=== PATIENT | male | born 1950 | race Caucasian/White ===

== ENCOUNTER → 2018-04-29 | Outpatient (CLI) | payer OTHER, MEDICARE | LOC: FIMAGING 13:41 | PROVIDERS: ATTEND Family Medicine | DX: M25.511 Pain in right shoulder (principal) ==

== ENCOUNTER 2018-11-26 11:11 | Day surgery (SDC) | payer OTHER, MEDICARE ==
--- NOTE | 2018-11-26 09:04 | PDGENHP ---
History and Physical - Chief Complaint ventral hernia - History of Present Illness Otherwise healthy 68yo M presents with ventral hernia. Breifly, patient has noticed mele above his umbilicus for some time. It has recently gotten painful. Reducible per his report History Information - Allergies/Home Medication List Allergies/Adverse Reactions: codeine Allergy (Verified 11/12/18 12:11) HYPER ACTIVITY Home Medications: Amlodipine Besylate DAILY 11/12/18 [Last Taken Unknown] Aspirin 81mg (*) DAILY 11/12/18 [Last Taken Unknown] Herbals/Supplements -Info Only DAILY 11/12/18 [Last Taken Unknown] Losartan Potassium DAILY 11/12/18 [Last Taken Unknown] I have personally reviewed and updated: family history, medical history, social history, surgical history - Past Medical History no pertinent PMH - Surgical History Reports: no pertinent surgical hx - Family History Positive for: non-pertinent - Social History Smoking Status: Current some day smoker Additional social history: retired Review of Systems Review of Systems: Physical Exam Physical Exam:
[2018-11-26] MEDS ORDERED: ceFAZolin 2 GM/DEXTROSE 100 ML IV ONE (11:20)
[2018-11-26] MEDS ORDERED: LR 1,000 ML IV ONE (11:23)
--- NOTE | 2018-11-26 12:25 | PDANEPAE ---
ANE History of Present Illness ventral hernia ANE Past Medical History - Cardiovascular History Hx Hypertension: Yes Hx Arrhythmias: No Hx Chest Pain: No Hx Coronary Artery / Peripheral Vascular Disease: No Hx CHF / Valvular Disease: No Hx Palpitations: No - Pulmonary History Hx COPD: No Hx Asthma/Reactive Airway Disease: No Hx Recent Upper Respiratory Infection: No Hx Oxygen in Use at Home: No Hx Sleep Apnea: No Sleep Apnea Screening Result - Last Documented: Positive Pulmonary History Comment: OCCASIONAL CIGAR - Neurologic History Hx Cerebrovascular Accident: No Hx Seizures: No Hx Dementia: No - Endocrine History Hx Diabetes: No - Renal History Hx Renal Disorders: No - Liver History Hx Hepatic Disorders: No - Neurological & Psychiatric Hx Hx Neurological and Psychiatric Disorders: No - Cancer History Hx Cancer: No - Congenital Disorder History Hx Congenital Disorders: No - GI History Hx Gastrointestinal Disorders: No - Other Health History Other Health History: ABDOMINAL BULDGE. RT SHLDR IMPINGEMENT/CORTISONE SHOT 6 MONTHS SLIGHT ROM ISSUES. DENTAL IMPLANTS - Chronic Pain History Chronic Pain: No - Surgical History Prior Surgeries: ORAL SURGERY ANE Review of Systems Review of systems is: negative Review of Systems: - Exercise capacity METS (RN): 5 METS ANE Patient History - Allergies Allergies/Adverse Reactions: codeine Allergy (Verified 11/12/18 12:11) HYPER ACTIVITY - Home Medications Home medications: home medication list seen and reviewed Home Medications: Amlodipine Besylate DAILY 11/12/18 [Last Taken 11/26/18] Aspirin 81mg (*) DAILY 11/12/18 [Last Taken 11/25/18] Herbals/Supplements -Info Only DAILY 11/12/18 [Last Taken 11/25/18] Losartan Potassium DAILY 11/12/18 [Last Taken 11/25/18] - NPO status NPO Since - Liquids (Date): 11/26/18 NPO Since - Liquids (Time): 08:30 NPO Since - Solids (Date): 11/25/18 NPO Since - Solids (Time): 21:00 - Anes Hx Anes Hx: no prior problems - Smoking Hx Smoking Status: Current some day smoker - Family Anes Hx Family Anes Hx: none Family Hx Anesthesia Complications: NEG ANE Labs/Vital Signs - Vital Signs Blood Pressure: 150/81 Heart Rate: 79 Respiratory Rate: 16 O2 Sat (%): 98 Height: 176.53 cm Weight: 79.379 kg ANE Physical Exam - Airway Neck exam: [facility] Score: Class 1 Mouth exam: normal dental/mouth exam - Pulmonary Pulmonary: no respiratory distress, no rales or rhonchi - Cardiovascular Cardiovascular: regular rate and rhythym, no murmur, rub, or gallop - ASA Status ASA Status: II ANE Anesthesia Plan Anesthesia Plan: general endotracheal anesthesia
[2018-11-26] MEDS ORDERED: MIDAZOLAM 2 MG/2 ML VIAL IVP ONE (12:33)
[2018-11-26] MEDS ORDERED: BUPIVACAINE 0.5% 30 ML SDV ONE (12:38)
[2018-11-26] MEDS ORDERED: fentaNYL 250 MCG/5 ML INJ ONE (12:40)
[2018-11-26] MEDS ORDERED: PROPOFOL 200 MG/20 ML VIAL ONE (12:40)
[2018-11-26] MEDS ORDERED: ROCURONIUM 50 MG/5 ML VIAL ONE (12:42)
[2018-11-26] MEDS ORDERED: LIDOCAINE 2% 5 ML SDV ONE (12:42)
[2018-11-26] MEDS ORDERED: DEXAMETHASONE 4 MG/ML VIAL ONE (13:32)
[2018-11-26] MEDS ORDERED: ROCURONIUM 100 MG/10 ML VIAL ONE (13:46)
[2018-11-26] MEDS ORDERED: ONDANSETRON 4 MG/2 ML VIAL ONE (14:04)
--- NOTE | 2018-11-26 14:06 | POSTOPPROG ---
Post Op Note Date of Operation: 11/26/18 Surgeon: Hossein Elizabeth Home Improvement Advisor: MICHAEL Gaming Anesthesiologist: Rochelle Anesthesia: GET(General Endotracheal) Pre-op Diagnosis: Ventral hernia Post-op Diagnosis: same Procedure: Robo assisted ventral hernia repair with mesh Findings: 2cm defect, 9cm covered mesh Inf/Abcess present in the surg proc area at time of surgery?: No EBL: Minimal
[2018-11-26] MEDS ORDERED: PROMETHAZINE HCL 25 MG/ML INJ IVP PRN (14:13)
[2018-11-26] MEDS ORDERED: ONDANSETRON 4 MG/2 ML VIAL IVP PRN (14:13)
[2018-11-26] MEDS ORDERED: NALOXONE HCL 0.4 MG/ML INJ IVP PRN (14:13)
[2018-11-26] MEDS ORDERED: fentaNYL 100 MCG/2 ML INJ IVP PRN (14:13)
[2018-11-26] MEDS ORDERED: HYDROmorphONE/DILAUDID 2 MG/ML INJ IVP PRN (14:13)
--- NOTE | 2018-11-26 14:25 | POSTANESTH ---
Post Anesthetic Evaluation Cardiovascular Status: Similar to Pre-Op Cond Respiratory Status: Similar to Pre-op Cond. Level of Consciousness/Mental Status: Can Participate in Eval, Alert and Oriented Pain Control: Adequate, Prn Tx Ordered Nausea/Vomiting Control: Adequate, Prn Tx Ordered Complications Possibly Related to Anesthesia: None Noted
[2018-11-26 15:23] VITALS: BP 122/66
--- NOTE | 2018-11-29 10:00 | GOP ---
[f rep st] OPERATIVE REPORT DATE OF OPERATION: 11/26/2018 SURGEON: Hossein Elizabeth MD [employer] USER INTERFACE DEVELOPER: Olya Humphries CFA. ANESTHESIA: General endotracheal. ANESTHESIOLOGIST: Eric Byrd MD. PREOPERATIVE DIAGNOSIS: Ventral hernia. POSTOPERATIVE DIAGNOSIS: Ventral hernia. PROCEDURE PERFORMED: Robotic-assisted ventral hernia repair with mesh. FINDINGS: A 2 cm ventral defect just below the xiphoid process successfully repaired 1st with an 0-S trataFix covered with a 9 cm round Symbotex mesh. SPECIMENS: None. ESTIMATED BLOOD LOSS: 5 cc. DESCRIPTION OF PROCEDURE: The patient was greeted in the preoperative suite. Once again, risks, grover efits, and alternatives were discussed. Consent was signed. He was then brought back to the operati ve suite, placed on the OR table in supine position. After all anesthesia machines including SCDs we re on and functioning, [facility] time-out was performed. After successful induction of general anesthesia, the patient's abdomen was prepped and draped in the typical sterile fashion. I commenced the procedure by making a left upper quadrant cutdown through which the Veress needle was passed. I achieved pneumoperitoneum to 15 mmHg, which was well tolerated by the patient. Through t his, I then inserted a 5 mm Visiport. Once successfully in the abdomen I inserted 2 additional 8 mm trocars, 1 in the left lateral abdomen and 1 in the left lower quadrant, both under direct visualizat ion. I then upsized my left upper quadrant port site under direct visualization to an 8 mm as well. The robot was then brought in and successfully docked. I turned my attention first toward reducing the hernia contents which appeared to be omental fat. This reduced easily. I measured the defect to approximately 2 cm. I dropped my pneumoperitoneum down to 10 mmHg and successfully closed the defec t using a running 0-Stratafix suture noting excellent fascial reapproximation. In order to buttress the repair, I then brought in a 9 cm Symbotex mesh and allowed it to lay sufficiently overlapping all of the repair. It was subsequently sewn to the underside of the abdominal wall with a running 2-0 V -Loc suture. Once this was done, I interrogated the rest of the abdomen and found no other significa nt findings. I evacuated my pneumoperitoneum. Ports were then removed. The skin was closed with 4- 0 Monocryl over which Dermabond was placed. The patient was then extubated in the operative suite an d taken to PACU in satisfactory condition. DRAINS: None. COUNTS: All counts were reported as correct x2. /[id number]/MODL
== END 2018-11-26 15:23 | disposition home or self-care (01) ==
LOC: FSGY 11:11
PROVIDERS: ATTEND Surgery
DX: K43.9 Ventral hernia without obstruction or gangrene (principal); I10 Essential (primary) hypertension; F17.200 Nicotine dependence, unspecified, uncomplicated
CPT/HCPCS: C1781; J0690; J1100; J2250; J2405; J2704; J3010

== ENCOUNTER → 2019-02-20 | Outpatient (CLI) | payer OTHER, MEDICARE | LOC: FIMAGING 17:44 | PROVIDERS: ATTEND Family Medicine | DX: I82.411 Acute embolism and thrombosis of right femoral vein (principal); I82.441 Acute embolism and thrombosis of right tibial vein ==